=== PATIENT | female | born 1950 | race Caucasian/White ===

== ENCOUNTER 2017-04-10 05:13 | Day surgery (SDC) | payer MEDICARE ==
[2017-04-09 12:26] LABS: BASOPHILS % (AUTO) 0.3 % (0-1); EOSINOPHILS # (AUTO) 0.2 X10'3 (0-0.9); EOSINOPHILS % (AUTO) 2.3 % (0-6); HEMATOCRIT 41.2 % (35.0-45.0); HEMOGLOBIN 13.7 g/dl (12.0-16.0); LYMPHOCYTES # (AUTO) 2.4 X10'3 (1.1-4.8); LYMPHOCYTES % (AUTO) 31.8 % (21-51); MEAN CORPUSCULAR HEMOGLOBIN 30.1 PG (27.0-31.0); MEAN CORPUSCULAR HGB CONC 33.3 % (33.0-36.5); MEAN CORPUSCULAR VOLUME 90.6 FL (78-98); MEAN PLATELET VOLUME 9.3 FL (7.4-10.4); MONOCYTES # (AUTO) 0.6 X10'3 (0-0.9); MONOCYTES % (AUTO) 7.6 % (2-12); NEUTROPHILS # (AUTO) 4.4 X10'3 (1.8-7.7); PLATELET COUNT 203 X10'3 (140-440); RED BLOOD COUNT 4.55 X10'6 (4.20-5.60); WHITE BLOOD COUNT 7.5 X10'3 (4.5-11.0)
[2017-04-09 12:41] LABS: ALBUMIN 3.7 G/DL (3.4-5.0); ANION GAP 7 (8-16); BLOOD UREA NITROGEN 13 MG/DL (7-18); BUN/CREATININE RATIO 16.3 (6.6-38.0); CALCIUM 9.3 MG/DL (8.5-10.1); CHLORIDE 107 MMOL/L (99-107); GLUCOSE 99 MG/DL (70-104); POTASSIUM 3.8 MMOL/L (3.5-5.1); SODIUM 144 MMOL/L (135-145); TOTAL CARBON DIOXIDE 30.1 MMOL/L (24-32); eGFR 72 ML/MIN
[2017-04-09 12:43] LABS: PARTIAL THROMBOPLASTIN TIME 26 SECONDS (22-32); PROTHROMBIN TIME 10.2 SECONDS (9.0-12.0)
[~2017-04-10] VITALS: Ht 167.6 cm; Wt 96.8 kg
[2017-04-10] VITALS (11 sets, daily range): BP systolic 122–159; BP diastolic 61–80
[2017-04-10] MEDS ORDERED: MOME17SP BOTHNARES (05:57)
[2017-04-10] MEDS ORDERED: ALBU8.5H8 INH (05:57)
[2017-04-10] MEDS ORDERED: LACT1CAP65 PO (05:57)
[2017-04-10] MEDS ORDERED: PANT-47 PO (05:57)
[2017-04-10] MEDS ORDERED: MINO50CA5 PO (05:57)
[2017-04-10] MEDS ORDERED: CLE2VCR VG (05:57)
[2017-04-10] MEDS ORDERED: OMEG1CAP PO (05:57)
[2017-04-10] MEDS ORDERED: FEXO180T94 PO (05:57)
[2017-04-10] MEDS ORDERED: DIPH25CA83 PO (05:57)
[2017-04-10] MEDS ORDERED: ROSU20TA PO (05:57)
[2017-04-10] MEDS ORDERED: ASPI-611 PO (05:57)
[2017-04-10] MEDS ORDERED: normal saline 1000ml 1,000 ML IV SCH (06:10)
[2017-04-10] MEDS ORDERED: LIDOcaine/PRILOcaine 5gm cream TP ONE (06:10)
[2017-04-10] MEDS ORDERED: LORazepam 0.5 MG tablet PO PRN (06:10)
[2017-04-10] MEDS ORDERED: diphenhydrAMINE 25mg capsule PO PRN (06:10)
[2017-04-10] MEDS ORDERED: LIDOcaine 1%/PF (10mg/ml) 5ml vial ONE (06:13)
[2017-04-10] MEDS ORDERED: iohexol 350MG/ML 100ml bottle IV ONE (06:14)
[2017-04-10] MEDS ORDERED: midazolam 2 mg/2 ml injection ONE (06:37)
[2017-04-10] MEDS ORDERED: HYDROcodone/acetaminophen 5mg/325mg tablet PO PRN (09:10)
[2017-04-10] MEDS ORDERED: acetaminophen 325mg tablet PO PRN (09:10)
[2017-04-10] MEDS ORDERED: proCHLORperazine 10 MG/2 ml inj IV PRN (09:10)
[2017-04-10] MEDS ORDERED: ondansetron/PF 4mg/2ml inj IV PRN (09:10)
[2017-04-10] MEDS ORDERED: OXAZEpam 15mg capsule PO PRN (09:10)
[2017-04-10] MEDS ORDERED: HYDROcodone/acetaminophen 10/325mg tab PO PRN (09:10)
== END 2017-04-10 11:20 | disposition home or self-care (01) ==
LOC: SSTAY O 05:13
PROVIDERS: ATTEND Internal Medicine Interventional Cardiology
DX: I25.10 Atherosclerotic heart disease of native coronary artery without angina pectoris (principal); J45.909 Unspecified asthma, uncomplicated; G47.33 Obstructive sleep apnea (adult) (pediatric); Z88.6 Allergy status to analgesic agent; Z88.8 Allergy status to other drugs, medicaments and biological substances; Z91.040 Latex allergy status
CPT/HCPCS: 36415; 80048; 85025; 85610; 85730; 93458; A6257; C1769; J2250; J7030; Q0163; Q9967; 99152; A4620; J2001